=== PATIENT | female | born 1980 | race Caucasian/White ===

== ENCOUNTER 2016-07-21 22:45 | Emergency (ER) | payer OTHER ==
--- NOTE | ~2016-07-21 | CR211 ---
[facility]. [facility] A Service of [facility] RADIOLOGY TEXT RESULTS PATIENT: DARLING ABARCA LOCATION: SED : 80 UNIT #: [id number] AGE: [address]: Rakan Whitaker MD SEX: F ORDER DR: [id number] [place] [id number] E MR#: [id number] Acc #: [id number] NAME: DARLING ABARCA. : 1980 SEX: F STUDY DATE/TIME: 07/22/2016 0:06 UNIT: SED ROOM: STUDY DESCRIPTION: CR Ribs Uni 2 View W PA Ch Rt Attending Physician: Rakan Whitaker M.D. Ordering Physician: Rakan Whtiaker M.D. Primary Care Physician: Jazzmine Ervin A.P.R.N. MEDICAL IMAGING REPORT This report is preliminary unless electronic signature is present. EXAM Frontal chest right rib series INDICATION Right rib pain for the past 2 weeks. PROCEDURE Frontal view of the chest. Two additional views of the right ribs. COMPARISON None. FINDINGS Lungs are clear. No displaced right rib fracture. IMPRESSION No acute findings. Dictated by... Aguilar Virgen M.D. THIS IS AN ELECTRONICALLY VERIFIED REPORT Aguilar Virgen M.D. at 07/22/2016 10:12 PM KARIME/odessa TD: 07/22/2016 09:21 JOB #: [id number] MEDICAL IMAGING REPORT Page 1 of 1
[~2016-07-21 22:45] MED LIST: ALPRAZOLAM PO; AMITRYPTYLINE PO; AMOXIL500 M1 PO; AUGMENTIN PO; BACLOFEN10 MG PO; BACLOFEN20 M1; BACTRIM DS TABL1 TA1 PO; BENZONATATE PO; BIRTH CONTROL PILL; CIPRO PO; CLARITIN10 MG PO; CLINDAMYCIN HC300 MG PO; DIAZEPAM PO; FLEXERIL10 M1 PO; FLOMAX0.4 M1 PO; HYCODAN60 ML 5MG/ PO; ILOTYCIN1 GM OD; IMITREX5 MG PO; INVANZ1 G/VIA1 IV; LORTAB 7.5-5001 TAB PO; MUCINEX D1 TAB.SR1; NEURONTIN PO; NORCO 10/325 TA1 TAB PO; ORTHO EVRA1 PATCH.WK TOP; PAXIL PO; PHENERGAN PO; PHENERGAN25 MG PO; PYRIDIUM100 MG PO; TERAZOL 745 GM TOP; TYLENOL #3 PO; ULTRAM PO; VICODIN 5/500 T1 TAB PO; VOLTAREN50 MG PO; ZESTRIL5 MG PO; ZITHROMAX PO; [UNRECOGNIZED DRUG - OTHER]; [UNRECOGNIZED DRUG - REMARK]
[2016-07-21] MEDS ORDERED: ALL DAY ALLERGY10 M3 PO (22:58)
[2016-07-21] MEDS ORDERED: FLEXERIL10 MG PO (22:58)
[2016-07-21] MEDS ORDERED: TOPAMAX (22:59)
[2016-07-21] MEDS ORDERED: VITAMIN B122500 MCG (23:00)
== END 2016-07-22 01:03 | disposition home or self-care (01) ==
LOC: SED 22:45
DX: S29.9XXA Unspecified injury of thorax, initial encounter (principal); Z79.899 Other long term (current) drug therapy; X50.1XXA Overexertion from prolonged static or awkward postures, initial encounter
CPT/HCPCS: 71101; 99283

== ENCOUNTER 2016-09-28 11:29 | Emergency (ER) | payer OTHER ==
[~2016-09-28 11:29] MED LIST changes: +ALL DAY ALLERGY10 M3 PO; +FLEXERIL10 MG PO; +TOPAMAX; +VITAMIN B122500 MCG
== END 2016-09-28 12:28 | disposition home or self-care (01) ==
LOC: SED 11:29
DX: H10.31 Unspecified acute conjunctivitis, right eye (principal); I10 Essential (primary) hypertension; Z79.899 Other long term (current) drug therapy
CPT/HCPCS: 99283